=== PATIENT | female | born 1980 | race Caucasian/White ===

== ENCOUNTER 2024-03-26 07:56 | Inpatient (IN) ==
[2024-03-26] MEDS ORDERED: LIDOCAINE 1% LOCAL 20 ML VIAL INFIL PRN (09:46)
--- NOTE | 2024-03-26 10:26 | Obstetrical Progress Note ---
Date of Service March 26, 2024 Assessment & Plan (1) Gestational [-induced] hypertension without significant pr oteinuria, complicating childbirth: Plan: Met pt and reviewed PNC FHR; CAT1 Ctx; Minimal VE;2/50/post Bedside sono; Vt Discussed induction with pt and spouse agreeable to Cytotec Cytotec #1 ordered Admission and Anticipated Discharge Date Admission Date: March 26, 2024 Results & Data Vital Signs (Past 12 Hours) Vital Signs Temp Pulse Resp BP 03/26/24 08:23 87 150/85 H 03/26/24 08:19 37.0 C 87 18 150/85 H
[2024-03-26 10:34] LABS: Hematocrit (blood only) 29.9 % (37.0-47.0); Hemoglobin 10.1 g/dl (12.0-16.0); Mean Corpuscular Hemoglobin 30.1 pg (25.0-34.0); Mean Corpuscular Hgb Conc 33.8 g/dL (32.0-36.0); Mean Platelet Volume 9.3 fL (9.4-12.4); Platelet Count 295 K/uL (130-400); RDW Standard Deviation 40.9 fL (36.4-46.3); Red Blood Count 3.36 M/uL (4.20-5.40); White Blood Count 8.51 K/ul (4.8-10.8)
[2024-03-26 10:43] LABS: Amphetamines+Metham, Urine Neg (Neg); Barbiturates, Urine Neg (Neg); Benzodiazepine, Urine Neg (Neg); Cocaine, Urine Neg (Neg); Fentanyl, Urine Neg (Neg); MDMA (Ecstacy), Urine Pos (Neg); Marijuana, Urine Neg (Neg); Methadone, Urine Neg (Neg); Opiate, Urine Neg (Neg); Phencyclidine, Urine Neg (Neg)
[2024-03-26 10:48] LABS: Albumin Globulin Ratio 1.3 (0.9-2); Albumin Level 3.3 gm/dl (3.4-5.0); BUN Creatinine Ratio 7.7 (10-20); Bilirubin,Total 0.3 mg/dl (0.2-1.0); Calcium 8.8 mg/dl (8.6-10.3); Est GFR (African American) 127.8 ml/min; Est GFR (Non-African American) 110.3 ml/min; Globulin 2.6 gm/dl (2.5-4.0); Potassium 3.6 mmol/L (3.5-5.1); Total Protein 5.9 gm/dl (6.0-8.3)
[2024-03-26] MEDS ORDERED: Nursing to Pharmacy Communication SCH (11:00)
[2024-03-26] MEDS: miSOPROStoL 50 MCG TAB PO SCH (11:03)
[2024-03-26] MEDS ORDERED: miSOPROStoL 50 MCG TAB PO SCH (12:00)
[2024-03-26] MEDS: BUTORPHANOL TARTRATE 2 MG/ML VIAL IM ONE (20:10)
[2024-03-26] MEDS: cloNIDine HCL 0.1 MG TAB PO SCH (20:14)
[2024-03-26] MEDS: LABETALOL HCL 100 MG TAB PO SCH (20:15)
[2024-03-26] MEDS ORDERED: OXYTOCIN 30 UNITS/NSS 30 UNITS/500 ML BAG IV PRN (21:48)
[2024-03-26] MEDS: LACTATED RINGER'S 1,000 ML IV PRN (23:06)
--- NOTE | 2024-03-26 23:14 | Obstetrical Progress Note ---
Date of Service March 26, 2024 Assessment & Plan (1) Gestational [-induced] hypertension without significant pr oteinuria, complicating childbirth: Plan: Induction for Gets. HTN +ve Toxu screen FHR; CAT1 Ctx 1-4min VE; last exam by pt was 2cm. couldn't tolerate pelvic exam Pt rates her ctx as severe Plan Epidural analgesia and consider AROM if cervical dilation is appropriate Admission and Anticipated Discharge Date Admission Date: March 26, 2024 Results & Data Vital Signs (Past 12 Hours) Vital Signs Temp Pulse Resp BP Pulse Ox 03/26/24 23:07 83 138/90 98 03/26/24 22:30 90 155/91 H 03/26/24 22:29 78 178/101 H 03/26/24 21:16 18 03/26/24 21:16 18 03/26/24 20:53 18 03/26/24 20:53 18 03/26/24 20:46 81 136/76 03/26/24 20:20 83 160/102 H 03/26/24 20:19 87 173/95 H 03/26/24 16:57 85 129/82 03/26/24 16:46 85 143/90 H 03/26/24 16:36 77 140/87 03/26/24 16:26 78 143/85 H 03/26/24 16:18 18 03/26/24 16:18 37.1 C 18 03/26/24 16:16 93 H 128/77 03/26/24 16:07 82 157/86 H 03/26/24 15:56 88 172/111 H 03/26/24 15:54 86 176/107 H 03/26/24 13:14 85 144/88 H 03/26/24 13:12 79 152/93 H 03/26/24 13:10 18 03/26/24 13:10 36.9 C 18
--- NOTE | 2024-03-26 23:20 | Anesthesiology Consultation ---
Date of Service March 26, 2024 Assessment & Plan Chart Review Chart Review: Acceptable Risk for Labor Epidural Consults Requested none ASA ASA2 Proposed Anesthesia Anesthesia Type: Labor Epidural Risk / Benefits Reviewed With: PT / POA / Parent / Guardian, Accepts Plan and Informed Consent Obtained History Height/Weight Height: 5 ft 9 in Weight: 74.39 kg Allergies Allergy/AdvReac Type Severity Reaction Status Date / Time duloxetine [From Cymbalta] AdvReac raises BP Verified 03/28/23 15:37 Medications Home Medications Medication Instructions Recorded Confirmed Last Taken Vitamin 1 tab PO DAILY 03/25/24 03/26/24 03/26/24 08:00 Vitamin B-12 1 tab sublingual DAILY 03/25/24 03/26/24 03/25/24 20:00 aspirin 81 mg chewable tablet 1 tab PO DAILY 03/25/24 03/26/24 03/25/24 20:00 clonidine 0.01 tab PO DAILY 03/25/24 03/26/24 03/26/24 08:00 labetalol 100 mg tablet 100 mg Q12 03/25/24 03/26/24 03/26/24 08:00 oxycodone 5 mg capsule 5 mg PO Q4H PRN pain 03/26/24 03/26/24 03/24/24 12:00 Active Medications Generic Name Dose Route Start Last Admin Trade Name Keshia PRN Reason Stop Dose Admin Clonidine HCl 0.1 mg 03/26/24 21:00 03/26/24 20:14 Clonidine Hcl 0.1 Mg Tab PO 04/25/24 20:59 0.1 mg BID SCOTT Administration Lactated Ringer's 1,000 mls @ 125 mls/hr 03/26/24 09:46 03/26/24 23:06 Lr IV 03/28/24 09:45 999 mls/hr .Q8H PRN Administration L&D Protocol Protocol Labetalol HCl 100 mg 03/26/24 21:00 03/26/24 20:15 Labetalol Hcl 100 Mg Tab PO 04/25/24 20:59 100 mg BID SCOTT Administration Misoprostol 50 mcg 03/26/24 11:00 03/26/24 21:31 Misoprostol 50 Mcg Tab PO 04/25/24 10:59 Not Given Q4 SCOTT Past Medical History Medical History Weight loss, unintentional Dysphagia History of COVID-2020, did not test, not hosp; loss of taste and smell-"has not returned as of yet" terminologist (current) use of opiate analgesic Abnormal LFTs Adenomyosis History of kidney stones Anxiety History of migraine Cardiac murmur no candy cutter machine. no previous echo. History of Lyme disease Endometriosis hx Exercise / Class Metabolic Activity II 4-5 Yardwork/Stairs/Walk up hill Past Family History Family History Grandfather (Paternal) Myocardial infarction Grandmother (Maternal) Myocardial infarction Other No family history of adverse response to anesthesia Denies family history of Ovarian cancer Prostate cancer Breast cancer Colorectal cancer Uterine cancer Past Surgical History Surgical History History of esophagogastroduodenoscopy (EGD) History of colonoscopy History of removal of ureteral stent History of ureter stent History of cystoscopy S/P wisdom tooth extraction S/P dilation and curettage removal of endometrial polyps; had miscarriage 01/2023, had D&E H/O laparoscopy x1 H/O breast augmentation H/O LEEP 2000 Past Anesthesia History No Hx of Anesthesia Complications and No Family Hx of Anesthesia Complications History of PONV No Hx of PONV and No Hx of Motion Sickness Social History Smoking Status: Current every day smoker tobacco type: cigarettes Smoking cigarettes per day: 3-5 Do You Dip or Chew Tobacco: No Hx Alcohol Use: No alcohol intake frequency: other Hx Substance Use: Yes substance use type: painkillers Substance Use Type Other:: Oxycodone a few times per month; pain Physical Exam Vital Signs Last Vital Signs Temp 98.1 F 03/26/24 23:10 Pulse 80 03/26/24 23:17 Resp 16 03/26/24 23:10 BP 138/90 03/26/24 23:07 Pulse Ox 98 03/26/24 23:17 ENMT Mouth: no dentition abnormality Thyromental Distance: > or= 3.5 Finger Breadths Mallampati Class: II Neck normal visual inspection Respiratory normal respiratory effort Auscultation: lungs clear to auscultation bilaterally Cardiovascular Rate/Rhythm: regular rate and regular rhythm Testing Laboratory Results 03/26/24 10:06 03/26/24 10:06
[2024-03-26] MEDS ORDERED: ONDANSETRON INJ 2 MG/ML 2 ML VIAL IV PRN (23:39)
[2024-03-26] MEDS ORDERED: SODIUM CHLORIDE 0.9% PF INJ 10 ML VIAL EPI PRN (23:39)
[2024-03-26] MEDS ORDERED: LIDOCAINE 2% MPF LOCAL 5 ML VIAL EPI PRN (23:39)
[2024-03-26] MEDS ORDERED: NALOXONE HCL 0.4 MG/1 ML VIAL/CARP IV PRN (23:39)
[2024-03-26] MEDS ORDERED: ePHEDrine sulfate 50 MG/ML AMP IV PRN (23:39)
[2024-03-26] MEDS ORDERED: fentANYL 2 MCG/ML BUPIVacaine 0.125%-NSS 100ML BAG EPI PRN (23:39)
[2024-03-26] MEDS ORDERED: NALBUPHINE HCL 5 MG in SYRINGE 0 ML IV PRN (23:39)
[2024-03-26] MEDS ORDERED: NALOXONE HCL 1 MG in SODIUM CHLORIDE 0.9% 1,000 ML IV PRN (23:39)
[2024-03-26] MEDS ORDERED: ROPIVACAINE 0.5% PF 5 MG/ML 20 ML VIAL EPI PRN (23:39)
[2024-03-26] MEDS: BUPIVACAINE 0.25% PF 30 ML VIAL ONE (23:41)
[2024-03-26] MEDS: LIDOCAINE 2%/EPINEPHRINE 1:200,000 20 ML PF ONE (23:41)
[2024-03-26] MEDS: fentANYL 2 MCG/ML BUPIVacaine 0.125%-NSS 100ML BAG ONE (23:41)
--- NOTE | 2024-03-27 00:21 | Obstetrical Progress Note ---
Date of Service March 27, 2024 Assessment & Plan (1) Gestational [-induced] hypertension without significant p roteinuria, complicating childbirth: Plan: Epidural placed FHR; CAT1 Ctx 1-3min VE; 3/50/-2 AROM with amnio hook- clear fluid Admission and Anticipated Discharge Date Admission Date: March 26, 2024 Results & Data Vital Signs (Past 12 Hours) Vital Signs Temp Pulse Resp BP Pulse Ox 03/27/24 00:17 70 99 03/27/24 00:12 74 145/77 H 98 03/27/24 00:07 76 98 03/27/24 00:02 72 98 03/26/24 23:57 75 98 03/26/24 23:55 14 03/26/24 23:55 14 03/26/24 23:53 75 157/91 H 03/26/24 23:52 98 03/26/24 23:52 77 03/26/24 23:52 73 148/82 H 03/26/24 23:50 14 03/26/24 23:50 14 03/26/24 23:47 74 99 03/26/24 23:45 78 16 156/98 H 03/26/24 23:43 75 152/89 H 03/26/24 23:42 80 98 03/26/24 23:41 71 150/87 H 03/26/24 23:39 74 14 148/84 H 03/26/24 23:38 74 146/77 H 03/26/24 23:37 77 96 03/26/24 23:32 78 98 03/26/24 23:27 82 98 03/26/24 23:22 78 97 03/26/24 23:17 80 98 03/26/24 23:15 36.7 C 83 16 138/90 98 03/26/24 23:12 86 97 03/26/24 23:10 16 03/26/24 23:10 36.7 C 83 16 03/26/24 23:07 83 138/90 98 03/26/24 22:30 90 155/91 H 03/26/24 22:29 78 178/101 H 03/26/24 21:16 18 03/26/24 21:16 18 03/26/24 20:53 18 03/26/24 20:53 18 03/26/24 20:46 81 136/76 03/26/24 20:20 83 160/102 H 03/26/24 20:19 87 173/95 H 03/26/24 16:57 85 129/82 03/26/24 16:46 85 143/90 H 03/26/24 16:36 77 140/87 03/26/24 16:26 78 143/85 H 03/26/24 16:18 18 03/26/24 16:18 37.1 C 18 03/26/24 16:16 93 H 128/77 03/26/24 16:07 82 157/86 H 03/26/24 15:56 88 172/111 H 03/26/24 15:54 86 176/107 H 03/26/24 13:14 85 144/88 H 03/26/24 13:12 79 152/93 H 03/26/24 13:10 18 03/26/24 13:10 36.9 C 18
[2024-03-27] MEDS ORDERED: NURSING L&D Epidural Breakthrough Pain Update ONE (01:30)
[2024-03-27] MEDS: fentaNYL citrate PF 100 MCG/2 ML VIAL EPI PRN (01:56)
[2024-03-27] MEDS: BUPIVACAINE 0.25% PF 30 ML VIAL EPI PRN (01:57)
--- NOTE | 2024-03-27 02:41 | Anesthesia Procedure Note ---
Date of Service March 27, 2024 Anesthesia Epidural Re-Dose Vital Signs Temp Pulse Resp BP Pulse Ox 98.1 F 77 18 151/83 H 98 03/26/24 23:15 03/27/24 02:37 03/27/24 02:20 03/27/24 02:26 03/27/24 02:37 Notes Pain Intensity: 9 Dilatation (cm): 4.0 Effacement (%): 80 Called by nursing to evaluate epidural as the patient is having increased pain. The epidural was re-dosed with the following medications after negative aspiration of the epidural catheter for CSF/HEME. 7mL of 0.25% Bupivacaine and 100mcg of fentanyl After Epidural Re-Dose Mental Status: alert / awake / arousable Pain: improving with treatment Airway Patency, RR, SpO2: stable & adequate BP & HR: stable & adequate
--- NOTE | 2024-03-27 04:52 | Anesthesia Procedure Note ---
Date of Service March 27, 2024 Anesthesia Epidural Re-Dose Vital Signs Temp Pulse Resp BP Pulse Ox 98.1 F 71 14 179/94 H 99 03/27/24 02:50 03/27/24 04:50 03/27/24 03:20 03/27/24 04:50 03/27/24 04:47 Notes Pain Intensity: 9 Dilatation (cm): 6.0 Effacement (%): 90 Called by nursing to evaluate epidural as the patient is having increased pain. The epidural was re-dosed with the following medications after negative aspiration of the epidural catheter for CSF/HEME. 8mL of 0.25% Bupivacaine and 100 mcg of fentanyl After Epidural Re-Dose Mental Status: alert / awake / arousable Pain: improving with treatment Airway Patency, RR, SpO2: stable & adequate BP & HR: stable & adequate
[2024-03-27] MEDS: miSOPROStoL 200 MCG TAB ONE ×2 (05:13→05:15)
[2024-03-27] MEDS: OXYTOCIN 30 UNITS/NSS 30 UNITS/500 ML BAG IV PRN ×2 (05:22)
[2024-03-27] MEDS ORDERED: HYDROCORTISONE ACETATE 25 MG SUPP PR PRN (05:25)
[2024-03-27] MEDS ORDERED: DIPHTHER/TETAN/PERTUS Vaccine (Tdap, Adol/Adult) 0.5mL IM ONE (05:25)
--- NOTE | 2024-03-27 05:29 | Delivery Summary ---
Vaginal Delivery Summary Date of Service March 27, 2024 Vaginal Delivery Summary DELIVERY NOTE Patient delivered a live female in left occiput anterior presentation there was no nuchal cord . Infant was delivered and placed on mother's abdomen. Delayed cord clamping was performed. Cord blood is obtained Cord gasses are obtained Meconium is absent Placenta is spontaneously delivered. Placenta appears grossly normal and has 3 vessel cord Inspection of the perineum showed a first-degree midline laceration. Laceration is repaired in layers with 3-0 Vicryl in layers Rectal exam post repair showed good sphincter tone no sutures palpated in the rectum. Quantitative blood loss is 113cc Infants weight and scores are in the pediatric record Mother and baby are stable in in the recovery
[2024-03-27 06:03] LABS: Base Excess Cord Venous Blood -3.3 mEq/L (-7.7-1.9); Cord Venous Blood HCO3 21 mmol/L (18.4-26.8); Cord Venous Blood PCO2 36 mmHg (30.4-57.2); Cord Venous Blood PO2 35 mmHg (14.1-43.3); Cord Venous Blood pH 7.38 (7.20-7.44); O2 Saturation Cord Venous Bld 80.1 % (<68)
[2024-03-27 06:04] LABS: Base Excess Cord Arterial Bld -2.3 mEq/L (-9-1.8); CO2 Cord Arterial Blood 52 mmHg (39.1-73.5); HCO3 Cord Arterial Blood 25 mmol/L (19.7-28.5); Oxygen Sat Cord Arterial Blood < 60.0 % (<60); PO2 Cord Arterial Blood 22 mmHg (4.1-31.7); pH Cord Arterial Blood 7.29 (7.1-7.38)
--- NOTE | 2024-03-27 07:18 | Anesthesia Procedure Note ---
Date of Service March 27, 2024 Anesthesia Post Epidural Note Vital Signs Vital Signs: Temp Pulse Resp BP Pulse Ox 37.0 C 80 16 152/82 H 99 03/27/24 06:50 03/27/24 07:05 03/27/24 06:50 03/27/24 07:05 03/27/24 05:17 Pain Intensity Abdomen: Pain Intensity: 10 Notes Mental Status: alert / awake / arousable and participated in evaluation Nausea / Vomiting: adequately controlled Pain: adequately controlled Airway Patency, RR, SpO2: stable & adequate BP & HR: stable & adequate Hydration State: stable & adequate Neuraxial Anesthesia: was administered and sensory block is resolving Anesthetic Complications: no major complications apparent Epidural: Removed without complications and With tip intact
[2024-03-27] MEDS: fentaNYL citrate PF 100 MCG/2 ML VIAL ONE (07:47)
[2024-03-27] MEDS: ePHEDrine sulfate 50 MG/ML AMP ONE (07:47)
[2024-03-27] MEDS: LIDOCAINE 2%/EPINEPHRINE 1:200,000 20 ML PF EPI STA (07:48)
[2024-03-27] MEDS: BUPIVACAINE 0.25% PF 30 ML VIAL EPI STA (07:48)
[2024-03-27] MEDS: SODIUM CHLORIDE 0.9% PF INJ 10 ML VIAL EPI STA (07:48)
[2024-03-27] MEDS: SODIUM CHLORIDE 0.9% PF INJ 10 ML VIAL ONE (07:48)
[2024-03-27] MEDS: fentaNYL citrate PF 100 MCG/2 ML VIAL EPI STA (07:48)
[2024-03-27] MEDS: miSOPROStoL 200 MCG TAB PR ONE (07:49)
[2024-03-27] MEDS: IBUPROFEN 600 MG TAB PO PRN (07:54)
[2024-03-27] MEDS: DOCUSATE SODIUM 100 MG CAP PO SCH (07:54)
[2024-03-27] MEDS: PRENATAL VITAMIN 1 TAB PO SCH (07:54)
[2024-03-27] MEDS ORDERED: KETOROLAC TROMETHAMINE 15 MG/ML VIAL IM PRN (08:57)
[2024-03-27] MEDS: ACETAMINOPHEN 325 MG TAB PO PRN (09:16)
[2024-03-27] MEDS: diphenhydrAMINE 50 MG/ML VIAL IV PRN (09:17)
[2024-03-27] MEDS ORDERED: Nursing to Pharmacy Communication SCH ×2 (11:00→17:15)
[2024-03-27] MEDS: BENZOCAINE 20% SPRY 85 APPLN/85 GM CAN EXT PRN (12:06)
[2024-03-27] MEDS: KETOROLAC TROMETHAMINE 15 MG/ML VIAL IV PRN (12:07)
[2024-03-27] MEDS: LABETALOL HCL 100 MG TAB PO ONE (13:13)
[2024-03-27] MEDS: MoRPHine SULFATE 2 MG/ML CARP IV STA (15:46)
[2024-03-27 17:03] LABS: Basophils # (auto) 0.05 K/uL (0.00-0.20); Basophils % (auto) 0.4 %; Eosinophils # (auto) 0.11 K/uL (0.00-0.50); Eosinophils % (auto) 0.9 %; Hematocrit (blood only) 29.3 % (37.0-47.0); Immature Granulocytes # (auto) 0.06 K/uL (0.01-0.20); Immature Granulocytes % (auto) 0.5 %; Lymphocytes # (auto) 1.29 K/uL (1.20-3.40); Lymphocytes % (auto) 10.7 %; Mean Corpuscular Hemoglobin 30.3 pg (25.0-34.0); Mean Corpuscular Hgb Conc 34.1 g/dL (32.0-36.0); Mean Corpuscular Volume 88.8 fL (80.0-100.0); Mean Platelet Volume 9.5 fL (9.4-12.4); Monocytes # (auto) 0.94 K/uL (0.11-0.59); Monocytes % (auto) 7.8 %; Neutrophils # (auto) 9.62 K/uL (1.40-6.50); Neutrophils % (auto) 79.7 %; Platelet Count 245 K/uL (130-400); RDW Coefficient of Variation 14.4 % (11.5-14.5); RDW Standard Deviation 40.5 fL (36.4-46.3); White Blood Count 12.07 K/ul (4.8-10.8)
[2024-03-27 17:17] LABS: Albumin Globulin Ratio 1.3 (0.9-2); Albumin Level 2.9 gm/dl (3.4-5.0); BUN Creatinine Ratio 9.7 (10-20); Bilirubin Direct 0.1 mg/dl (0-0.2); Bilirubin,Total 0.4 mg/dl (0.2-1.0); Calcium 8.4 mg/dl (8.6-10.3); Creatinine Clr Calc Pharmacy 124.8 ml/min; Est GFR (African American) 129.8 ml/min; Globulin 2.2 gm/dl (2.5-4.0); Potassium 4.6 mmol/L (3.5-5.1); Total Protein 5.1 gm/dl (6.0-8.3); Uric Acid 5.9 mg/dl (2.6-7.2)
[2024-03-27 18:06] LABS: Protein Creatinine Ratio Urine 0.3 (0-0.2); Total Protein Urine Random 10.3 mg/dl (0-11.9)
--- NOTE | 2024-03-27 18:45 | Obstetrical Progress Note ---
Date of Service March 27, 2024 Assessment & Plan (1) HTN (hypertension): Continue Labetalol (2) Proteinuria affecting : Start Magnesium sulfate Subjective Ambulation: ambulating normally Voiding: no voiding problems Passing Gas:: Yes Diet Tolerance:: regular diet Lochia:: Small Feeding Type:: bottle feeding Physical Exam Constitutional WD/WN, vitals as above Results & Data Vital Signs (Past 12 Hours) Vital Signs Temp Pulse Pulse Resp BP BP Pulse Ox 03/27/24 18:09 155/93 H 03/27/24 16:38 158/96 H 03/27/24 16:05 161/105 H 03/27/24 15:15 36.7 C 78 18 159/100 H 99 03/27/24 13:05 150/93 H 03/27/24 12:40 168/104 H 03/27/24 12:30 36.7 C 74 18 158/95 H 98 03/27/24 09:00 03/27/24 09:00 36.9 C 89 18 146/93 H 98 03/27/24 07:50 100 H 141/78 H 03/27/24 07:35 87 149/83 H 03/27/24 07:20 37.2 C 20 03/27/24 07:20 86 165/85 H 03/27/24 07:05 80 152/82 H 03/27/24 06:50 37.0 C 16 03/27/24 06:50 82 160/96 H O2 Del Method 03/27/24 18:09 03/27/24 16:38 03/27/24 16:05 03/27/24 15:15 Room Air 03/27/24 13:05 03/27/24 12:40 03/27/24 12:30 Room Air 03/27/24 09:00 Room Air 03/27/24 09:00 Room Air 03/27/24 07:50 03/27/24 07:35 03/27/24 07:20 03/27/24 07:20 03/27/24 07:05 03/27/24 06:50 03/27/24 06:50 Laboratory Results 03/26/24 03/26/24 03/27/24 09:15 10:06 04:54 WBC 8.51 RBC 3.36 L Hgb 10.1 L Hct 29.9 L MCV 89.0 MCH 30.1 MCHC 33.8 RDW Std Deviation 40.9 RDW Coeff of [place] 14.0 Plt Count 295 MPV 9.3 L Immature Gran % (Auto) Neut % (Auto) Lymph % (Auto) [place] % (Auto) Eos % (Auto) Baso % (Auto) Neut # (Auto) Lymph # (Auto) [place] # (Auto) Eos # (Auto) Baso # (Auto) Immature Gran # (Auto) Cord ABG pH 7.29 Cord ABG pCO2 52 Cord ABG pO2 22 Cord ABG HCO3 25 Cord ABG Base Excess -2.3 Cord ABG O2 Sat < 60.0 Cord VBG pH 7.38 Cord VBG pCO2 36 Cord VBG pO2 35 Cord VBG HCO3 21 Cord VBG Base Excess -3.3 Cord VBG O2 Sat 80.1 H Blood Gas Comments RODRÍGUEZ Sodium 134 L Potassium 3.6 Chloride 106 Carbon Dioxide 20 L Anion Gap 8 BUN 5 L Creatinine 0.65 Est Cr Clr Drug Dosing 119.0 Est GFR ( Amer) 127.8 Est GFR (Non-Af Amer) 110.3 BUN/Creatinine Ratio 7.7 L Glucose 83 Uric Acid Calcium 8.8 Total Bilirubin 0.3 Direct Bilirubin AST 17 ALT 10 Alkaline Phosphatase 140 H Lactate Dehydrogenase Total Protein 5.9 L Albumin 3.3 L Globulin 2.6 Albumin/Globulin Ratio 1.3 Ur Random Creatinine U Random Total Protein Protein/Creatinin Ratio Urine Opiates Screen Neg Ur Methadone, Qual Neg Urine Fentanyl Screen Neg Urine Barbiturates Neg Ur Phencyclidine (PCP) Neg U Amphetamin/Meth Scrn Neg MDMA (Ecstasy) Screen Pos H U Benzodiazepines Scrn Neg Ur Cocaine Metabolite Neg U Marijuana (THC) Screen Neg 03/27/24 03/27/24 03/27/24 04:54 16:31 17:20 WBC 12.07 H RBC 3.30 L Hgb 10.0 L Hct 29.3 L MCV 88.8 MCH 30.3 MCHC 34.1 RDW Std Deviation 40.5 RDW Coeff of [place] 14.4 Plt Count 245 MPV 9.5 Immature Gran % (Auto) 0.5 Neut % (Auto) 79.7 Lymph % (Auto) 10.7 [place] % (Auto) 7.8 Eos % (Auto) 0.9 Baso % (Auto) 0.4 Neut # (Auto) 9.62 H Lymph # (Auto) 1.29 [place] # (Auto) 0.94 H Eos # (Auto) 0.11 Baso # (Auto) 0.05 Immature Gran # (Auto) 0.06 Cord ABG pH Cord ABG pCO2 Cord ABG pO2 Cord ABG HCO3 Cord ABG Base Excess Cord ABG O2 Sat Cord VBG pH Cord VBG pCO2 Cord VBG pO2 Cord VBG HCO3 Cord VBG Base Excess Cord VBG O2 Sat Blood Gas Comments RODRÍGUEZ Sodium 136 Potassium 4.6 D Chloride 108 H Carbon Dioxide 23 Anion Gap 5 BUN 6 Creatinine 0.62 Est Cr Clr Drug Dosing 124.8 Est GFR ( Amer) 129.8 Est GFR (Non-Af Amer) 112.0 BUN/Creatinine Ratio 9.7 L Glucose 97 Uric Acid 5.9 Calcium 8.4 L Total Bilirubin 0.4 Direct Bilirubin 0.1 AST 16 ALT 9 Alkaline Phosphatase 102 Lactate Dehydrogenase 181 Total Protein 5.1 L Albumin 2.9 L Globulin 2.2 L Albumin/Globulin Ratio 1.3 Ur Random Creatinine 40.0 U Random Total Protein 10.3 Protein/Creatinin Ratio 0.3 H Urine Opiates Screen Ur Methadone, Qual Urine Fentanyl Screen Urine Barbiturates Ur Phencyclidine (PCP) U Amphetamin/Meth Scrn MDMA (Ecstasy) Screen U Benzodiazepines Scrn Ur Cocaine Metabolite U Marijuana (THC) Screen
[2024-03-27] MEDS: oxyCODONE HCL IR 5 MG TAB (IMMEDIATE RELEASE) PO PRN (19:33)
[2024-03-27] MEDS: MAGNESIUM SULFATE / WTR 40 GM/1,000 ML BAG IV SCH (19:56)
[2024-03-27] MEDS: MAG SULFATE 4GM BOLUS FROM BAG IV ONE (20:21)
[2024-03-27] MEDS ORDERED: LABETALOL HCL 100 MG TAB PO SCH (21:00)
[2024-03-27] MEDS: LABETALOL HCL 200 MG TAB PO SCH (22:03)
[2024-03-28 06:41] LABS: Hematocrit (blood only) 30.5 % (37.0-47.0); Hemoglobin 10.2 g/dl (12.0-16.0); Mean Corpuscular Hemoglobin 30.1 pg (25.0-34.0); Mean Corpuscular Hgb Conc 33.4 g/dL (32.0-36.0); Mean Platelet Volume 9.2 fL (9.4-12.4); Platelet Count 265 K/uL (130-400); RDW Coefficient of Variation 14.6 % (11.5-14.5); RDW Standard Deviation 42.6 fL (36.4-46.3); Red Blood Count 3.39 M/uL (4.20-5.40); White Blood Count 10.09 K/ul (4.8-10.8)
[2024-03-28] MEDS: CYANOCOBALAMIN (B-12) 500 MCG TABLET PO SCH (08:17)
--- NOTE | 2024-03-28 08:44 | Obstetrical Progress Note ---
Date of Service March 28, 2024 Assessment & Plan Admission and Anticipated Discharge Date Admission Date: March 26, 2024 OB Progress Note Patient is 43-year-old 6 para 4. Followed in the office for care and delivery. care was complicated by anemia and hypertension. Brought in for induction at 38+ weeks gestation. After successful induction with a vaginal delivery she developed hypertension . Was taken back in given 24 hours of mag sulfate. Along with labetalol 200 mg p.o. twice daily at the time of her visit today she was doing well. She had no significant symptoms of headaches or blurred vision. Her blood pressures were in the normal range with a combination of mag sulfate and labetalol. The mag sulfate was scheduled to be discontinued about 2 PM today which would give her 24 hours of mag sulfate. Results & Data Vital Signs (Past 12 Hours) Vital Signs Temp Pulse Resp BP Pulse Ox 03/28/24 08:39 82 145/93 H 03/28/24 08:34 87 99 03/28/24 08:29 84 99 03/28/24 08:24 88 98 03/28/24 08:19 87 99 03/28/24 08:14 79 100 03/28/24 08:09 83 99 03/28/24 08:04 78 99 03/28/24 07:59 91 H 100 03/28/24 07:54 85 100 03/28/24 07:49 93 H 99 03/28/24 07:44 83 99 03/28/24 07:39 85 99 03/28/24 07:34 86 99 03/28/24 07:29 94 H 99 03/28/24 07:24 84 98 03/28/24 07:19 85 99 03/28/24 07:14 88 99 03/28/24 07:09 85 99 03/28/24 07:04 88 99 03/28/24 06:59 88 99 03/28/24 06:54 86 98 03/28/24 06:49 82 98 03/28/24 06:44 81 99 03/28/24 06:39 78 99 03/28/24 06:34 93 H 100 03/28/24 06:31 81 132/85 03/28/24 06:29 84 98 03/28/24 06:24 79 97 03/28/24 06:20 18 03/28/24 06:19 81 98 03/28/24 06:14 81 97 03/28/24 06:09 81 99 03/28/24 06:04 90 99 03/28/24 05:59 83 99 03/28/24 05:54 84 98 03/28/24 05:49 79 99 03/28/24 05:44 81 99 03/28/24 05:39 84 100 03/28/24 05:34 83 99 03/28/24 05:29 79 98 03/28/24 05:24 81 98 03/28/24 05:20 18 03/28/24 05:19 85 99 03/28/24 05:14 80 98 03/28/24 05:09 81 98 03/28/24 05:04 87 98 03/28/24 04:59 81 99 03/28/24 04:54 87 99 03/28/24 04:49 72 98 03/28/24 04:44 79 97 03/28/24 04:39 73 97 03/28/24 04:34 71 97 03/28/24 04:29 75 99 03/28/24 04:24 92 H 98 03/28/24 04:20 18 03/28/24 04:19 85 99 03/28/24 04:18 157 H 140/96 03/28/24 04:14 76 97 03/28/24 04:09 77 97 03/28/24 04:04 76 97 03/28/24 03:59 77 97 03/28/24 03:54 78 97 03/28/24 03:49 78 97 03/28/24 03:48 74 156/84 H 03/28/24 03:44 80 98 03/28/24 03:39 81 97 03/28/24 03:34 79 98 03/28/24 03:29 80 97 03/28/24 03:24 78 97 03/28/24 03:20 18 03/28/24 03:19 79 97 03/28/24 03:18 76 136/81 03/28/24 03:14 87 96 03/28/24 03:09 78 97 03/28/24 03:04 82 97 03/28/24 02:59 77 97 03/28/24 02:54 75 97 03/28/24 02:49 73 98 03/28/24 02:48 73 135/78 03/28/24 02:44 73 97 03/28/24 02:39 73 97 03/28/24 02:34 72 97 03/28/24 02:29 73 97 03/28/24 02:24 73 97 03/28/24 02:20 18 03/28/24 02:19 71 98 03/28/24 02:18 72 154/88 H 03/28/24 02:14 71 98 03/28/24 02:09 70 96 03/28/24 02:04 72 98 03/28/24 01:59 71 97 03/28/24 01:54 70 96 03/28/24 01:49 83 100 03/28/24 01:44 82 99 03/28/24 01:39 82 99 03/28/24 01:34 77 97 03/28/24 01:29 75 97 03/28/24 01:24 80 96 03/28/24 01:20 18 03/28/24 01:19 76 97 03/28/24 01:18 71 155/89 H 03/28/24 01:14 69 96 03/28/24 01:09 72 97 03/28/24 01:04 72 97 03/28/24 00:59 69 97 03/28/24 00:54 70 97 03/28/24 00:49 72 97 03/28/24 00:48 122 H 143/81 H 03/28/24 00:44 71 98 03/28/24 00:39 71 97 03/28/24 00:34 77 99 03/28/24 00:20 18 03/28/24 00:18 36.8 C 71 143/77 H 03/27/24 23:48 71 03/27/24 23:48 132/77 03/27/24 23:20 18 03/27/24 23:18 72 03/27/24 23:18 151/101 H 03/27/24 23:09 84 03/27/24 23:09 148/89 H 03/27/24 22:54 75 03/27/24 22:54 146/89 H 03/27/24 22:39 76 03/27/24 22:39 147/87 H 03/27/24 22:24 68 03/27/24 22:24 156/87 H 03/27/24 22:20 18 03/27/24 22:09 71 03/27/24 22:09 174/102 H 03/27/24 21:54 84 03/27/24 21:54 174/96 H 03/27/24 21:39 76 03/27/24 21:39 18 160/98 H 03/27/24 21:24 70 03/27/24 21:24 18 158/82 H 03/27/24 21:20 18 03/27/24 21:09 72 03/27/24 21:09 18 159/89 H 03/27/24 20:54 71 03/27/24 20:54 18 137/79
[2024-03-28] MEDS ORDERED: ASPIRIN 81 MG CHEW PO SCH (09:00)
[2024-03-28] MEDS ORDERED: NON-FORMULARY MEDICATION (Prenatal Vitamin 1 TAB) PO SCH (09:00)
[2024-03-28] MEDS ORDERED: CLONIDINE PO SCH (09:00)
[2024-03-28] MEDS: bisacodyL 5 MG TABEC PO SCH (19:30)
[2024-03-29] MEDS ORDERED: bisacodyL 10 MG SUPP PR PRN
[2024-03-29 07:16] LABS: Hematocrit (blood only) 29.5 % (37.0-47.0); Hemoglobin 9.6 g/dl (12.0-16.0)
--- NOTE | 2024-03-29 09:25 | Obstetrical Progress Note ---
Date of Service March 29, 2024 Subjective Ambulation: ambulating normally Voiding: no voiding problems Passing Gas:: Yes Diet Tolerance:: regular diet Lochia:: Small Feeding Type:: breast feeding Current Pain Level(1-10): 0 doing well. baby to stay. Mom to go home today. Physical Exam Constitutional WD/WN, vitals as above Gastrointestinal (Abdomen) Inspection/Auscultation: abdomen normal to inspection abdomen soft and non-tender. fundus firm below U. Musculoskeletal Extremities: extremities normal to inspection Skin no rashes, warm and dry Neurologic patellar DTR's 2+ bilat, sensation intact Psychiatric A+Ox3, euthymic affect Results & Data Vital Signs (Past 12 Hours) Vital Signs Temp Pulse Pulse Resp BP BP Pulse Ox 03/29/24 04:00 87 18 123/83 03/28/24 22:30 37.4 C 97 H 18 117/81 97 03/28/24 21:39 92 H 94 03/28/24 21:35 89 99 03/28/24 21:30 99 H 99 03/28/24 21:25 95 H 99 O2 Del Method 03/29/24 04:00 03/28/24 22:30 Room Air 03/28/24 21:39 03/28/24 21:35 03/28/24 21:30 03/28/24 21:25 Laboratory Results 03/26/24 03/26/24 03/27/24 09:15 10:06 04:54 WBC 8.51 RBC 3.36 L Hgb 10.1 L Hct 29.9 L MCV 89.0 MCH 30.1 MCHC 33.8 RDW Std Deviation 40.9 RDW Coeff of [place] 14.0 Plt Count 295 MPV 9.3 L Immature Gran % (Auto) Neut % (Auto) Lymph % (Auto) [place] % (Auto) Eos % (Auto) Baso % (Auto) Neut # (Auto) Lymph # (Auto) [place] # (Auto) Eos # (Auto) Baso # (Auto) Immature Gran # (Auto) Cord ABG pH 7.29 Cord ABG pCO2 52 Cord ABG pO2 22 Cord ABG HCO3 25 Cord ABG Base Excess -2.3 Cord ABG O2 Sat < 60.0 Cord VBG pH 7.38 Cord VBG pCO2 36 Cord VBG pO2 35 Cord VBG HCO3 21 Cord VBG Base Excess -3.3 Cord VBG O2 Sat 80.1 H Blood Gas Comments RODRÍGUEZ Sodium 134 L Potassium 3.6 Chloride 106 Carbon Dioxide 20 L Anion Gap 8 BUN 5 L Creatinine 0.65 Est Cr Clr Drug Dosing 119.0 Est GFR ( Amer) 127.8 Est GFR (Non-Af Amer) 110.3 BUN/Creatinine Ratio 7.7 L Glucose 83 Uric Acid Calcium 8.8 Magnesium (Sulf Ther) Total Bilirubin 0.3 Direct Bilirubin AST 17 ALT 10 Alkaline Phosphatase 140 H Lactate Dehydrogenase Total Protein 5.9 L Albumin 3.3 L Globulin 2.6 Albumin/Globulin Ratio 1.3 Ur Random Creatinine U Random Total Protein Protein/Creatinin Ratio Urine Opiates Screen Neg Ur Methadone, Qual Neg Urine Fentanyl Screen Neg Urine Barbiturates Neg Ur Phencyclidine (PCP) Neg U Amphetamin/Meth Scrn Neg MDMA (Ecstasy) Screen Pos H U Benzodiazepines Scrn Neg Ur Cocaine Metabolite Neg U Marijuana (THC) Screen Neg 03/27/24 03/27/24 03/27/24 04:54 16:31 17:20 WBC 12.07 H RBC 3.30 L Hgb 10.0 L Hct 29.3 L MCV 88.8 MCH 30.3 MCHC 34.1 RDW Std Deviation 40.5 RDW Coeff of [place]ek[place] 14.4 Plt Count 245 MPV 9.5 Immature Gran % (Auto) 0.5 Neut % (Auto) 79.7 Lymph % (Auto) 10.7 [place] % (Auto) 7.8 Eos % (Auto) 0.9 Baso % (Auto) 0.4 Neut # (Auto) 9.62 H Lymph # (Auto) 1.29 [place] # (Auto) 0.94 H Eos # (Auto) 0.11 Baso # (Auto) 0.05 Immature Gran # (Auto) 0.06 Cord ABG pH Cord ABG pCO2 Cord ABG pO2 Cord ABG HCO3 Cord ABG Base Excess Cord ABG O2 Sat Cord VBG pH Cord VBG pCO2 Cord VBG pO2 Cord VBG HCO3 Cord VBG Base Excess Cord VBG O2 Sat Blood Gas Comments RODRÍGUEZ Sodium 136 Potassium 4.6 D Chloride 108 H Carbon Dioxide 23 Anion Gap 5 BUN 6 Creatinine 0.62 Est Cr Clr Drug Dosing 124.8 Est GFR ( Amer) 129.8 Est GFR (Non-Af Amer) 112.0 BUN/Creatinine Ratio 9.7 L Glucose 97 Uric Acid 5.9 Calcium 8.4 L Magnesium (Sulf Ther) Total Bilirubin 0.4 Direct Bilirubin 0.1 AST 16 ALT 9 Alkaline Phosphatase 102 Lactate Dehydrogenase 181 Total Protein 5.1 L Albumin 2.9 L Globulin 2.2 L Albumin/Globulin Ratio 1.3 Ur Random Creatinine 40.0 U Random Total Protein 10.3 Protein/Creatinin Ratio 0.3 H Urine Opiates Screen Ur Methadone, Qual Urine Fentanyl Screen Urine Barbiturates Ur Phencyclidine (PCP) U Amphetamin/Meth Scrn MDMA (Ecstasy) Screen U Benzodiazepines Scrn Ur Cocaine Metabolite U Marijuana (THC) Screen 03/28/24 03/29/24 05:59 06:52 WBC 10.09 RBC 3.39 L Hgb 10.2 L 9.6 L Hct 30.5 L 29.5 L MCV 90.0 MCH 30.1 MCHC 33.4 RDW Std Deviation 42.6 RDW Coeff of [place]ek[place] 14.6 H Plt Count 265 MPV 9.2 L Immature Gran % (Auto) Neut % (Auto) Lymph % (Auto) [place] % (Auto) Eos % (Auto) Baso % (Auto) Neut # (Auto) Lymph # (Auto) [place] # (Auto) Eos # (Auto) Baso # (Auto) Immature Gran # (Auto) Cord ABG pH Cord ABG pCO2 Cord ABG pO2 Cord ABG HCO3 Cord ABG Base Excess Cord ABG O2 Sat Cord VBG pH Cord VBG pCO2 Cord VBG pO2 Cord VBG HCO3 Cord VBG Base Excess Cord VBG O2 Sat Blood Gas Comments Sodium Potassium Chloride Carbon Dioxide Anion Gap BUN Creatinine Est Cr Clr Drug Dosing Est GFR ( Amer) Est GFR (Non-Af Amer) BUN/Creatinine Ratio Glucose Uric Acid Calcium Magnesium (Sulf Ther) 5.4 Total Bilirubin Direct Bilirubin AST ALT Alkaline Phosphatase Lactate Dehydrogenase Total Protein Albumin Globulin Albumin/Globulin Ratio Ur Random Creatinine U Random Total Protein Protein/Creatinin Ratio Urine Opiates Screen Ur Methadone, Qual Urine Fentanyl Screen Urine Barbiturates Ur Phencyclidine (PCP) U Amphetamin/Meth Scrn MDMA (Ecstasy) Screen U Benzodiazepines Scrn Ur Cocaine Metabolite U Marijuana (THC) Screen
[2024-03-29 14:08] LABS: MDA negative; MDEA negative; MDMA (Ecstasy) Urine, Confirm negative
[2024-03-29 17:45] VITALS: RESP 20; TEMP 98.8; O2SAT 98
[2024-03-29 17:50] VITALS: BP 117/81; PULSE 87
== END 2024-03-29 11:50 | disposition home or self-care (01) | DRG 807 ==
LOC: 4S1 07:56 → 4E2 03-27 08:20 → 4S1 03-27 19:18 → 4E2 03-28 22:32